=== PATIENT | female | born 1975 | race Caucasian/White ===

== ENCOUNTER → 2025-03-03 | Outpatient (CLI) | payer MEDICAID, SELFPAY ==
--- NOTE | 2025-03-03 14:00 | XR_ITS ---
Examination: Breast ultrasound, unilateral, left complete Date and time of exam: March 03, 2025 1223 hours INDICATIONS: Outside mammogram December 02, 2024 2 focal asymmetries each 8 mm in the left breast lower outer quadrant and upper inner quadrant Technique: Real-time lamb scale ultrasonographic imaging performed left breast including all 4 quadrants as well as nipple retroareolar and axillary region. Findings: 12:00 cyst 4 x 5 mm 1:00 cyst 11 x 6 mm 2:00 cyst 4 x 4 millimeter 8:00 cyst 8 x 3 mm Retroareolar nodule circumscribed 4 x 5 mm Dilated ducts Multiple smaller cysts IMPRESSION: BI-RADS Category 3: Probably benign findings One additional 6 month left breast sonogram follow-up is needed to document stability of circumscribed retroareolar nodule described above
--- NOTE | 2025-03-03 14:30 | XR_ITS ---
Examination: Diagnostic digital mammography, unilateral, left Computer aided detection 3-D breast Tomosynthesis, unilateral Date and time of exam: March 03, 2025 1341 hours INDICATIONS: Mammogram December 02, 2024 8mm focal asymmetry lower outer left breast and upper inner left breast Technique: Nonmagnified MLO, CC views of the left breast have been obtained, reconstructed from 3-D Tomosynthesis images. R2 computer aided detection program utilized for evaluation of suspicious masses and/or abnormal calcifications. 3-D Tomosynthesis images obtained. Findings: The breast is heterogeneously dense, which may obscure small masses No suspicious masses are depicted Impression: BI-RADS category 2: Benign findings Recommend yearly follow-up mammography Please see the left breast sonogram report today recommending 6 month left breast sonogram follow-up to document stability of small circumscribed retroareolar nodule left breast
== END | disposition home or self-care (01) ==
PROVIDERS: PCP Physician Assistant; Referring Provider Physician Assistant; Visit Provider Physician Assistant
DX: R92.322 Mammographic fibroglandular density, left breast (principal); N63.42 Unspecified lump in left breast, subareolar; N60.02 Solitary cyst of left breast
CPT/HCPCS: 76641; 77061; 77065; G0279